=== PATIENT | male | born 1955 | race African-American/Black ===

== ENCOUNTER 2025-01-10 11:04 | Inpatient (IN) | payer OTHER ==
[2025-01-10 11:52] VITALS: BMI 19.2
[2025-01-10] MEDS ORDERED: BACLOFEN 10 MG TABLET (FP) PO PRN (12:27)
[2025-01-10] MEDS ORDERED: POLYETHYLENE GLYCOL (HEALTHYLAX) 3350 17 GM PACKET PO PRN (12:27)
[2025-01-10] MEDS ORDERED: MAG HYDROX/AL HYDROX/SIMETH 30 ML UNIT-DOSE CUP PO PRN (12:27)
[2025-01-10] MEDS ORDERED: BENZONATATE 200 MG CAPSULE PO PRN (12:27)
[2025-01-10] MEDS ORDERED: LOPERAMIDE HCL 2 MG CAPSULE PO PRN (12:27)
[2025-01-10] MEDS ORDERED: ACETAMINOPHEN 325 MG TABLET (FP) PO PRN (12:27)
[2025-01-10] MEDS ORDERED: MAGNESIUM HYDROX 2400MG/30ML ORAL SUSPENSION 30 ML CUP PO PRN (12:27)
[2025-01-10] MEDS ORDERED: DICYCLOMINE HCL 10 MG CAPSULE PO PRN (12:27)
[2025-01-10] MEDS ORDERED: BISMUTH SUBSALICYLATE 262 MG/15 ML BTL PO PRN (12:27)
[2025-01-10] MEDS ORDERED: IBUPROFEN 400 MG TABLET (FP) PO PRN (12:27)
[2025-01-10] MEDS ORDERED: NALOXONE (NARCAN) HCL 4 MG/0.1 ML SPRAY NS PRN (12:27)
[2025-01-10] MEDS ORDERED: IBUPROFEN 600 MG TABLET (FP) PO PRN (12:27)
[2025-01-10] MEDS ORDERED: BENZOCAINE/MENTHOL (CHLORASEPTIC ) LOZENGE MM PRN (12:27)
[2025-01-10] MEDS ORDERED: guaiFENesin 600 MG TABLET.ER (FP) PO PRN (12:27)
[2025-01-10] MEDS: LISINOPRIL 20 MG TABLET PO SCH (14:17)
[2025-01-10] MEDS: amLODIPine BESYLATE 10 MG TABLET (FP) PO SCH (14:18)
[2025-01-10] MEDS: LORazepam 1 MG TABLET PO SCH (17:08)
[2025-01-10] MEDS: THIAMINE 100 MG TABLET PO SCH (23:25)
[2025-01-10] MEDS: MELATONIN 5 MG TABLETS PO SCH (23:30)
[2025-01-11] MEDS: PRENATAL VITAMINS W/ FOLIC ACID TABLET (FP) PO SCH (10:56)
[2025-01-11 11:34] LABS: POTASSIUM 3.3 mmol/L (3.5-5.1)
[2025-01-11 11:35] LABS: HEMATOCRIT 49.6 % (35.4-49); HEMOGLOBIN 16.2 GM/dL (11.7-16.9); MCHC 32.7 g/dl (32.0-35.9); MEAN CELL VOLUME 88.8 fl (80-96); MEAN PLT VOLUME 8.2 fl (7.5-11.1); PLATELET COUNT 192 10^3/uL (134-434); RBC 5.58 M/mm3 (4.00-5.60); WHITE BLOOD COUNT 4.7 K/mm3 (4.0-10.0)
[2025-01-11 11:40] LABS: ALBUMIN 3.6 g/dl (3.4-5.0); BLOOD UREA NITROGEN 8.4 mg/dL (7-18)
[2025-01-11 11:43] LABS: BILIRUBIN,TOTAL 1.2 mg/dL (0.2-1); CREATININE 0.9 mg/dL (0.55-1.3); TOT PROT 7.9 g/dl (6.4-8.2)
[2025-01-11] MEDS: ONDANSETRON *ODT* 4 MG TABLET SL PRN (22:19)
[2025-01-12] MEDS: LORazepam 0.5 MG TABLET PO SCH (05:42)
[2025-01-12] MEDS: POTASSIUM CHLORIDE ORAL LIQUID 20 MEQ/15 ML PO ONE ×2 (11:11→17:32)
[2025-01-13] MEDS ORDERED: LORazepam 0.5 MG TABLET PO PRN
[2025-01-13] MEDS: LORazepam 0.5 MG TABLET PO SCH (05:43)
[2025-01-14] MEDS: LORazepam 0.5 MG TABLET PO ONE (05:39)
[2025-01-14 12:59] VITALS: BP 121/74; PULSE 84; RESP 16; TEMP 98.1
== END 2025-01-14 13:16 | disposition home or self-care (01) | DRG 897 ==
LOC: YASAS 11:04 → Y6N 13:11
PROVIDERS: ADMIT Allergy & Immunology; ATTEND Allergy & Immunology
PROC: HZ2ZZZZ Detoxification Services for Substance Abuse Treatment (ICD-10-PCS; principal; 2025-01-10)
DX: F19.230 Other psychoactive substance dependence with withdrawal, uncomplicated (principal); F10.230 Alcohol dependence with withdrawal, uncomplicated; E87.6 Hypokalemia; I10 Essential (primary) hypertension
CPT/HCPCS: 36415; 80053; 80305; 80307; 84132; 85027; 86780; 93005; 93010; Q0162